=== PATIENT | female | born 1970 | race Caucasian/White ===

== ENCOUNTER 2016-12-09 18:20 | Emergency (ER) | payer MEDICAID, OTHER ==
[~2016-12-09] VITALS: Ht 162.6 cm; Wt 95.0 kg
[2016-12-09] MEDS ORDERED: HYDROCODONE/ACETAMINOPHEN 5/325MG TABLET PO PRN (22:30)
[2016-12-09] MEDS ORDERED: ONDANSETRON 4MG ODT PO PRN (22:30)
[2016-12-09 22:52] LABS: CLARITY URINE CLEAR (CLEAR); COLOR URINE YELLOW (YELLOW); GLUCOSE URINE NEGATIVE (NEGATIVE); KETONES URINE NEGATIVE (NEGATIVE); LEUKOCYTE ESTERASE URINE TRACE (NEGATIVE); NITRITE URINE NEGATIVE (NEGATIVE); OCCULT BLOOD URINE NEGATIVE (NEGATIVE); PH URINE 6.5 (4.5-8.0); PROTEIN URINE NEGATIVE (NEGATIVE); SPECIFIC GRAVITY URINE 1.008 (1.005-1.030); UROBILINOGEN URINE 0.2 E.U./dL (0.2-1.0)
[2016-12-09 22:54] LABS: BASOPHILS % 0.4 % (0.0-2.0); EOSINOPHILS % 0.8 % (0.0-5.0); HEMATOCRIT. 33.6 % (36.0-48.0); HEMOGLOBIN. 11.3 g/dL (12.0-16.0); MEAN CORPUSCULAR HEMOGLOBIN 29.8 pg (28.0-32.0); MEAN CORPUSCULAR VOLUME 88.4 fL (81.0-99.0); MEAN PLATELET VOLUME 8.6 fl (7.4-10.4); MONOCYTES % 5.1 % (2.0-8.0); NEUTROPHILS % 71.7 % (40.0-76.0); PLATELET 191 x1000/uL (130-400); RED BLOOD CELL COUNT 3.79 mill/uL (4.2-5.4); RED CELL DISTRIBUTION WIDTH 14.1 % (11.6-14.6)
[2016-12-09 23:08] LABS: CARBON DIOXIDE 27 mEq/L (21-32); CHLORIDE 103 mEq/L (98-107)
[2016-12-10] MEDS ORDERED: HYDROCODONE/ACETAMINOPHEN 5/325MG TABLET PO ONE (01:15)
[2016-12-10 01:43] VITALS: BP 169/100
== END 2016-12-10 02:38 | disposition home or self-care (01) ==
LOC: ER 18:20
DX: L03.116 Cellulitis of left lower limb (principal); I10 Essential (primary) hypertension; E78.00 Pure hypercholesterolemia, unspecified
CPT/HCPCS: 36415; 73630; 80053; 81001; 81025; 85025; 99285; Q0162; Z7610

== ENCOUNTER 2017-09-20 09:06 | Emergency (ER) | payer OTHER ==
[~2017-09-20] VITALS: Ht 167.6 cm; Wt 85.0 kg
[2017-09-20] MEDS ORDERED: SODIUM CHLORIDE 0.9% 1,000 ML IV ONE (09:22)
[2017-09-20] MEDS ORDERED: ONDANSETRON HCL 4MG/2ML VIAL IV STA (09:22)
[2017-09-20] MEDS ORDERED: KETOROLAC 30MG/ML VIAL IV STA (09:22)
[2017-09-20 09:34] LABS: HEMOGLOBIN. 10.5 g/dL (12.0-16.0); MEAN CORPUSCULAR HEMOGLOBIN 26.5 pg (28.0-32.0); MEAN CORPUSCULAR VOLUME 80.9 fL (81.0-99.0); MEAN PLATELET VOLUME 8.9 fl (7.4-10.4); PLATELET 299 x1000/uL (130-400); RED BLOOD CELL COUNT 3.96 mill/uL (4.2-5.4); RED CELL DISTRIBUTION WIDTH 16.8 % (11.6-14.6)
[2017-09-20 09:40] LABS: CHLORIDE 102 mEq/L (98-107)
[2017-09-20 10:35] LABS: PLATELET ESTIMATE NORMAL
[2017-09-20 10:48] LABS: CLARITY URINE CLEAR (CLEAR); COLOR URINE YELLOW (YELLOW); KETONES URINE 1+ (NEGATIVE); LEUKOCYTE ESTERASE URINE NEGATIVE (NEGATIVE); NITRITE URINE NEGATIVE (NEGATIVE); OCCULT BLOOD URINE 3+ (NEGATIVE); PROTEIN URINE NEGATIVE (NEGATIVE); SPECIFIC GRAVITY URINE 1.013 (1.005-1.030); UROBILINOGEN URINE 0.2 E.U./dL (0.2-1.0)
[2017-09-20] MEDS ORDERED: ACETAMINOPHEN 325MG TABLET PO ONE (11:30)
[2017-09-20 11:49] LABS: HCG SCREEN NEGATIVE
[2017-09-20 14:11] VITALS: BP 120/70
== END 2017-09-20 14:14 | disposition home or self-care (01) ==
LOC: ER 09:18
DX: B34.9 Viral infection, unspecified (principal); E78.00 Pure hypercholesterolemia, unspecified; I10 Essential (primary) hypertension; Z88.0 Allergy status to penicillin; Z98.890 Other specified postprocedural states
CPT/HCPCS: 36415; 71045; 80053; 81003; 84703; 85025; 93005; 96361; 96374; 96375; 99285; J1885; J2405; J7030; Z7610

== ENCOUNTER 2017-09-23 13:31 | Emergency (ER) | payer OTHER ==
[~2017-09-23] VITALS: Ht 162.6 cm; Wt 100.0 kg
[2017-09-23 16:09] LABS: BASOPHILS % 0.3 % (0.0-2.0); EOSINOPHILS % 0.3 % (0.0-5.0); HEMATOCRIT. 31.6 % (36.0-48.0); HEMOGLOBIN. 10.5 g/dL (12.0-16.0); LYMPHOCYTES % 11.9 % (20.0-50.0); MEAN CORPUSCULAR HEMOGLOBIN 26.6 pg (28.0-32.0); MEAN PLATELET VOLUME 9.2 fl (7.4-10.4); MONOCYTES % 12.7 % (2.0-8.0); NEUTROPHILS % 74.8 % (40.0-76.0); PLATELET 315 x1000/uL (130-400); RED BLOOD CELL COUNT 3.94 mill/uL (4.2-5.4); RED CELL DISTRIBUTION WIDTH 16.5 % (11.6-14.6)
[2017-09-23 16:14] LABS: CHLORIDE 97 mEq/L (98-107); INR 1.1; PROTHROMBIN TIME 10.9 sec (9.4-11.6)
[2017-09-23 16:20] LABS: HCG SCREEN NEGATIVE
[2017-09-23] MEDS ORDERED: POTASSIUM CHLORIDE INJ 40 MEQ in DEXT 5% WATER 250 ML IV ONE (17:00)
[2017-09-23] MEDS ORDERED: SODIUM CHLORIDE 0.9% 1,000 ML IV ONE (17:38)
[2017-09-23 19:35] LABS: CLARITY URINE CLEAR (CLEAR); COLOR URINE YELLOW (YELLOW); KETONES URINE 1+ (NEGATIVE); LEUKOCYTE ESTERASE URINE NEGATIVE (NEGATIVE); NITRITE URINE NEGATIVE (NEGATIVE); OCCULT BLOOD URINE TRACE (NEGATIVE); PH URINE 6.5 (4.5-8.0); PROTEIN URINE TRACE (NEGATIVE); SPECIFIC GRAVITY URINE 1.021 (1.005-1.030); UROBILINOGEN URINE 0.2 E.U./dL (0.2-1.0)
[2017-09-23] MEDS ORDERED: POTASSIUM CHLORIDE 20MEQ TABLET SR PO ONE (20:30)
[2017-09-23] MEDS ORDERED: ACETAMINOPHEN 325MG TABLET PO ONE (20:30)
[2017-09-23 20:47] VITALS: BP 149/82
[2017-09-23] MEDS ORDERED: POTASSIUM CHLORIDE 20MEQ TABLET SR PO NR (21:15)
[2017-09-23] MEDS ORDERED: ONDANSETRON HCL 4MG/2ML VIAL IV ONE (21:45)
[2017-09-23] MEDS: POTASSIUM CHLORIDE 20MEQ TABLET SR PO NR ×2 (22:04→23:48)
== END 2017-09-24 02:50 | disposition home or self-care (01) ==
LOC: ER 17:24
DX: K52.9 Noninfective gastroenteritis and colitis, unspecified (principal); E87.6 Hypokalemia; E78.00 Pure hypercholesterolemia, unspecified; I10 Essential (primary) hypertension; Z88.0 Allergy status to penicillin; Z98.890 Other specified postprocedural states
CPT/HCPCS: 36415; 74176; 80053; 81003; 83690; 84703; 85025; 85610; 96361; 96365; 96366; 96375; 99285; J2405; J3480; J7030; Z7610; J7060